=== PATIENT | male | born 1995 | race Caucasian/White ===

== ENCOUNTER → 2020-05-15 10:28 | Outpatient (BNVA) | payer BC, SELFPAY | PROVIDERS: Family Provider Nurse Practitioner; Referring Provider Family Medicine; Visit Provider Internal Medicine | DX: E23.7 Disorder of pituitary gland, unspecified (principal); E29.1 Testicular hypofunction; G89.29 Other chronic pain; N52.9 Male erectile dysfunction, unspecified; R51.9 Headache, unspecified; R79.89 Other specified abnormal findings of blood chemistry | CPT/HCPCS: 99205 ==

== ENCOUNTER 2020-05-23 10:58 | Outpatient (CLI) | payer BC, SELFPAY ==
[2020-05-23 12:28] LABS: Follicle Stimulating Hormone 1.8 mIU/mL (1.5-12.4); Luteinizing Hormone 2.9 mIU/mL (1.7-8.6)
[2020-05-23 14:01] LABS: Cortisol Random 13.46 ug/mL (2.47-19.5)
[2020-05-23 14:57] LABS: Free T4 Free Thyroxine 1.17 ng/dL (0.82-1.77); Testosterone Total 223.3 ng/dL (249-836)
[2020-05-26 21:18] LABS: Testosterone, Free 57.9 pg/mL (46.0-224.0)
[2020-05-27 10:30] LABS: IGF1 LC/MS 267 ng/mL (83-456); Z Score (Female) 0.7 SD (-2.0 - +2.0)
== END 2020-05-23 10:59 | disposition home or self-care (01) ==
PROVIDERS: Visit Provider Internal Medicine
DX: R79.89 Other specified abnormal findings of blood chemistry (principal); E23.7 Disorder of pituitary gland, unspecified
CPT/HCPCS: 36415; 82533; 83001; 83002; 84305; 84402; 84403; 84439

== ENCOUNTER → 2020-05-31 13:34 | Outpatient (BNVA) | payer BC, SELFPAY | PROVIDERS: Visit Provider Internal Medicine | DX: E29.1 Testicular hypofunction (principal); G89.29 Other chronic pain; N52.9 Male erectile dysfunction, unspecified; R51.9 Headache, unspecified; R79.89 Other specified abnormal findings of blood chemistry | CPT/HCPCS: 99213 ==

== ENCOUNTER → 2021-01-02 10:17 | Outpatient (BNVA) | payer BC, SELFPAY | PROVIDERS: PCP Family Medicine; Visit Provider Internal Medicine | DX: G89.29 Other chronic pain (principal); E29.1 Testicular hypofunction; N52.9 Male erectile dysfunction, unspecified; R51.9 Headache, unspecified | CPT/HCPCS: 99213 ==

== ENCOUNTER 2022-11-25 15:03 | Outpatient (CLI) | payer SELFPAY ==
--- NOTE | 2022-11-25 15:16 | XR_ITS ---
WS: [id number] EXAMINATION: XR chest 2V* [id number] REASON FOR EXAM: shortness of breath, LRI COMPARISON: None available. ORDER DATE: 11/25/2022 3:21 PM FINDINGS: The lungs are clear of infiltrate. The cardiac and mediastinal outlines are unremarkable. There ar e no significant pleural effusions . No significant abnormalities are noted in the spine or remainder of the bony thorax. XR/XR chest 2V* [id number] IMPRESSION: NO ACUTE PULMONARY CHANGE.
== END 2022-11-25 15:04 | disposition home or self-care (01) ==
PROVIDERS: PCP Family Medicine; Visit Provider Clinical Nurse Specialist Adult Health
DX: J22 Unspecified acute lower respiratory infection (principal)
CPT/HCPCS: 71046

== ENCOUNTER → 2024-06-19 10:14 | Outpatient (BNVA) | payer SELFPAY | PROVIDERS: PCP Family Medicine; Visit Provider Nurse Practitioner Family | DX: R39.9 Unspecified symptoms and signs involving the genitourinary system (principal) | CPT/HCPCS: 81000 ==

== ENCOUNTER → 2024-09-29 16:12 | Outpatient (BNVA) | payer SELFPAY | PROVIDERS: PCP Family Medicine; Visit Provider Nurse Practitioner | DX: R39.198 Other difficulties with micturition (principal); R39.15 Urgency of urination; R39.11 Hesitancy of micturition | CPT/HCPCS: 80053; 81000; 85025; G0103 ==